=== PATIENT | male | born 1970 | race Asian ===

== ENCOUNTER 2017-03-15 14:07 | Emergency (ER) | payer SELFPAY ==
[~2017-03-15] VITALS: Ht 177.8 cm; Wt 79.4 kg
[2017-03-15] MEDS ORDERED: NKM (14:14)
[2017-03-15] MEDS ORDERED: LORazepam Inj 2mg/ml 1ml IV ONE (14:15)
--- NOTE | 2017-03-15 14:15 | Emergency Room Report ---
History of Present Illness General Chief Complaint: Abdominal Pain Source: Patient Present Illness HPI 46YOM walk-in with "burning pain" to "whole abdomen for 1 day No associated nausea/vomiting/diarrhea, fever/chills, urinary complaints No previous surgery No other medical problems Smokes marijuana Allergies: Coded Allergies: No Known Allergies (Unverified , 03/15/17) Patient History Past Medical History: none Past Surgical History: none Pertinent Family History: none Social History: Denies: smoking, alcohol use, drug use Immunizations: UTD Reviewed Nursing Documentation: PMH: Agreed, PSxH: Agreed Nursing Documentation-PMH Past Medical History: No Stated History Review of Systems All Other Systems: negative except mentioned in HPI Physical Exam Vital Signs Date Time Temp Pulse Resp B/P (MAP) Pulse Ox O2 Delivery O2 Flow Rate FiO2 03/15/17 14:10 97.3 62 21 176/91 98 Room Air Sp02 EP Interpretation: reviewed, normal General Appearance: normal inspection, well appearing, no apparent distress, alert, other - writhing on stretcher, yelling Head: atraumatic ENT: normal ENT inspection, hearing grossly normal, normal voice Neck: normal inspection, full range of motion, supple, no bony tend Respiratory: normal inspection, lungs clear, normal breath sounds, no respiratory distress, no retraction, no wheezing Cardiovascular #1: regular rate, rhythm, no edema Gastrointestinal: normal inspection, normal bowel sounds, non tender, soft, no guarding, no hernia, other - hy Genitourinary: no CVA tenderness Musculoskeletal: normal inspection, back normal, normal range of motion, Lele' s Sign negative Neurologic: normal inspection, alert, oriented x3, responsive, speech normal Psychiatric: normal inspection, judgement/insight normal, mood/affect normal Skin: normal inspection, normal color, no rash Medical Decision Making Diagnostic Impression: Primary Impression: Abdominal pain Qualified Codes: R10.84 - Generalized abdominal pain Additional Impression: Marijuana abuse ER Course VSS. Afebrile HR of 63 is not consistent with patient's presentation of writhing on stretcher in abd pain and yelling Very histrionic Leuks elevated. Lactate >2 NO LFT or metabolic abnormality CTAP totally normal Feels better after IV narcotics Likely related to MJ abuse. Improved with topical capsacian cream as well Also possibly gastritis - was given GI cocktail in ED with improvement Will F/up with PMD Last Vital Signs Date Time Temp Pulse Resp B/P (MAP) Pulse Ox O2 Delivery O2 Flow Rate FiO2 03/15/17 14:10 97.3 62 21 176/91 98 Room Air Status: improved Disposition: HOME, SELF-CARE JERARDO ALTAMIRANO M.D. Mar 15, 2017 14:15
[2017-03-15 14:29] VITALS: BP 176/91
[2017-03-15 14:40] LABS: BASOPHILS % (AUTO) 0.5 % (0.0-2.0); EOSINOPHILS % (AUTO) 0.3 % (0.0-3.0); LYMPHOCYTES % (AUTO) 14.3 % (20.0-45.0); MEAN CORPUSCULAR HEMOGLOBIN 32.4 PG (27.0-31.0); MEAN CORPUSCULAR HGB CONC 33.8 G/DL (32.0-36.0); MEAN CORPUSCULAR VOLUME 96 FL (80-99); MEAN PLATELET VOLUME 6.8 FL (6.5-10.1); MONOCYTES % (AUTO) 4.6 % (1.0-10.0); NEUTROPHILS % (AUTO) 80.2 % (45.0-75.0); PLATELET COUNT 316 K/UL (150-450); RED BLOOD COUNT 4.98 M/UL (4.70-6.10); RED CELL DISTRIBUTION WIDTH 11.7 % (11.6-14.8); WHITE BLOOD COUNT 15.8 K/UL (4.8-10.8)
[2017-03-15] MEDS ORDERED: Mylanta II UD 30ml ORAL ONE (14:45)
[2017-03-15] MEDS ORDERED: Lidocaine 2% Visc 15ml soln ORAL ONE (14:45)
[2017-03-15 14:55] LABS: ALANINE AMINOTRANSFERASE 31 U/L (12-78); ALBUMIN/GLOBULIN RATIO 1.3 (1.0-2.7); ANION GAP 15 mmol/L (5-15); ASPARTATE AMINO TRANSFERASE 19 U/L (15-37); CALCIUM 9.4 MG/DL (8.5-10.1); CARBON DIOXIDE 21 MMOL/L (21-32); CHLORIDE 106 MMOL/L (98-107); CREATININE 1.1 MG/DL (0.55-1.30); GLOMERULAR FILTRATION RATE > 60 mL/min (>60); LIPASE 153 U/L (73-393); POTASSIUM 3.4 MMOL/L (3.5-5.1); SODIUM 142 MMOL/L (136-145); TOTAL PROTEIN 7.5 G/DL (6.4-8.2)
[2017-03-15] MEDS ORDERED: Piperacillin/Tazobactam 3.375 GM in NS 110 ML IVPB ONE (15:00)
[2017-03-15 15:01] LABS: REFLEX LACTIC ACID YES OR NO YES
[2017-03-15 15:49] LABS: APPEARANCE,URINE CLEAR; KETONES,URINE 1+ (NEGATIVE); LEUKOCYTE ESTERASE ,URINE NEGATIVE (NEGATIVE); NITRITE,URINE NEGATIVE (NEGATIVE); PH,URINE 8 (4.5-8.0); PROTEIN,URINE NEGATIVE (NEGATIVE); UROBILINOGEN,URINE NORMAL MG/DL (0.0-1.0)
[2017-03-15 15:57] LABS: BACTERIA,URINE FEW /HPF; WBC,URINE 0-2 /HPF (0 - 0)
[2017-03-15] MEDS ORDERED: Zosyn 3.375gm inj ONE (15:59)
[2017-03-15] MEDS ORDERED: Morphine Sulfate 4mg/ml Inj IVP ONE (16:15)
[2017-03-15 16:30] VITALS: BP 156/86
--- NOTE | 2017-03-15 16:42 | Diagnostic Imaging Report ---
Indication: Abdominal pain Technique: Continuous helical transaxial imaging of the abdomen and pelvis was obtained from the lung bases to the pubic symphysis during intravenous contrast administration. Coronal 2-D reformats were also obtained. Study obtained in a Siemens sensation [address] Total Dose length Product (DLP): [address] Dose Index Volume (CTDIvol): 0.15, 11.8 mGy Comparison: None Findings: Minimal right basilar reticular densities noted likely atelectasis. Lung bases are clear otherwise. The gallbladder is unremarkable. The liver and spleen are unremarkable. There is a small hiatal hernia. Pancreas is unremarkable. Small cyst noted in the right kidney. No hydronephrosis demonstrated. Some excreted contrast noted in the collecting system. Normal appendix noted. Few diverticula demonstrated within the colon. No definite evidence of acute diverticulitis. There is a small right inguinal hernia containing fat. There is a questionable tiny left inguinal hernia containing fat. Right unilateral pedicle screws demonstrated at L5-S1 with laminectomy. Impression: No acute findings appreciated. Minimal right basal atelectasis. Normal appendix. Mild diverticulosis of the colon. Small right inguinal hernia containing fat. Questionable tiny inguinal hernia on the left containing fat. Lower lumbar surgery The CT scanner at [facility] is accredited by the [employer] and the scans are performed using dose optimization techniques as appropriate to a performed exam including Automatic Exposure control.
[2017-03-15] MEDS ORDERED: Capsaicin 0.075% Cream TOPIC SCH (17:00)
[2017-03-15 17:44] VITALS: BP 156/86
== END 2017-03-15 17:45 | disposition home or self-care (01) ==
LOC: EMR 14:38
DX: R10.9 Unspecified abdominal pain (principal); F12.10 Cannabis abuse, uncomplicated; K57.30 Diverticulosis of large intestine without perforation or abscess without bleeding; K40.90 Unilateral inguinal hernia, without obstruction or gangrene, not specified as recurrent
CPT/HCPCS: 36415; 74177; 80053; 80306; 81003; 83605; 83690; 85025; 96361; 96365; 96375; 99284; J2270; J2405; J2543; Q9967; S0028